=== PATIENT | male | born 1955 | race Caucasian/White ===

== ENCOUNTER 2019-01-09 00:08 | Day surgery (SDC) | payer BC ==
[~2019-01-09] VITALS: Ht 180.3 cm; Wt 78.0 kg
[~2019-01-09 00:08] MED LIST: CEP500 PO; CETI-176 PO; CHOL10005 PO; CYAN100058 PO; GLUC100026 PO; LISI20TA29 PO; NO ROUTINE MEDS; OXYC-763 PO
[2019-01-09] MEDS ORDERED: NORMOSOL R SOLN(*) 1000 ML BAG 1,000 ML IV PRN (09:05)
[2019-01-09] MEDS ORDERED: LIDOCAINE/SOD BICARB 8.4% SYR ID ONE (09:05)
[2019-01-09 09:07] VITALS: BP 121/73
[2019-01-09 10:36] VITALS: BP 80/56
[2019-01-09 11:00] VITALS: BP 95/64
[2019-01-09 11:06] VITALS: BP 94/64
[2019-01-09 11:08] VITALS: BP 94/68
--- NOTE | 2019-01-09 11:25 | NUR ---
1036 PT ARRIVED TO [place], VITALS TAKEN BY Arnav CHAVEZ RN AND DR. PETERSEN, VSS, BP LOW 1100 VSS, BP SLOWLY COMING UP, ON RA, TOLERATING SIPS OF WATER, JAROD AT BEDSIDE 1106 ORTHOSTATICS DONE, STABLE, PT DRESSED 1110 IV OUT, REASSESED, D/C INSTRUCTIONS COVERED, ALL QUESTIONS ANSWERED 1120 PT OUT TO CAR BY FOOT, DECLINED WC, ALL BELONGINGS WITH PT, SELF TRANSFERRED TO CAR OUTSIDE OF ADMITTING ENTRANCE WITHOUT INCIDENT.
[2019-01-09] MEDS ORDERED: PROPOFOL(*)1000 MG/100 ML VIAL 0 ML ONE (12:27)
[2019-01-09] MEDS ORDERED: PROPOFOL(*)1000 MG/100 ML VIAL 100 ML ONE (12:27)
== END 2019-01-09 11:20 | disposition home or self-care (01) ==
LOC: OR 00:08
PROVIDERS: ATTEND Family Medicine
DX: Z12.11 Encounter for screening for malignant neoplasm of colon (principal); K63.5 Polyp of colon; K57.30 Diverticulosis of large intestine without perforation or abscess without bleeding
CPT/HCPCS: 00811; 45380; 88305; J2704

== ENCOUNTER → 2019-02-25 | Outpatient (REF) | payer BC | LOC: ZZSENDIN 12:00 | PROVIDERS: ATTEND Urology | DX: C61 Malignant neoplasm of prostate (principal); N41.1 Chronic prostatitis; N42.89 Other specified disorders of prostate | CPT/HCPCS: 88305; 88344 ==